=== PATIENT | male | born 1945 | race Caucasian/White ===

== ENCOUNTER 2020-09-17 02:26 | Emergency (ER) | payer MEDICARE, BC ==
[~2020-09-17] VITALS: Ht 177.8 cm; Wt 84.1 kg
[~2020-09-17 02:26] MED LIST: NO HOME MEDICATIONS
[2020-09-17 02:39] VITALS: TEMP 98.7
[2020-09-17] MEDS ORDERED: VELCADE3.5 MG IV (02:55)
[2020-09-17] MEDS ORDERED: XGEVA120 MG/1.7 SQ (02:56)
[2020-09-17] MEDS ORDERED: CRESTOR5 MG PO (02:59)
[2020-09-17] MEDS ORDERED: PRILOSEC 20MG20 MG PO (02:59)
[2020-09-17 03:09] LABS: COLLECTION METHOD CLEAN CATCH
[2020-09-17 03:19] LABS: MUCOUS Present /lpf; PH 7 (5-8); SQUAMOUS EPITHELIAL None Seen /hpf; URINE APPEARANCE Clear; URINE BACTERIA None Seen /hpf; URINE BILIRUBIN Negative (NEGATIVE); URINE BLOOD Negative (NEGATIVE); URINE COLOR Yellow; URINE GLUCOSE Negative (NEGATIVE); URINE KETONE Negative (NEGATIVE); URINE LEUKOCYTE ESTERASE Negative (NEGATIVE); URINE NITRATE Negative (NEGATIVE); URINE PROTEIN(semi-quant) Negative (NEGATIVE); URINE RBC 0-2 /hpf; URINE UROBILINOGEN Negative (NEGATIVE)
[2020-09-17] MEDS ORDERED: NORCO 325 MG-51 TAB PO (03:47)
[2020-09-17 03:55] VITALS: BP 129/70; PULSE 54
== END 2020-09-17 03:55 | disposition home or self-care (01) ==
LOC: COL.ER 02:26
PROVIDERS: Emergency Medicine
DX: M25.551 Pain in right hip (principal); M25.552 Pain in left hip; Z85.79 Personal history of other malignant neoplasms of lymphoid, hematopoietic and related tissues; Z88.0 Allergy status to penicillin
CPT/HCPCS: J1885

== ENCOUNTER 2020-09-26 20:56 | Emergency (ER) | payer MEDICARE, BC ==
[~2020-09-26] VITALS: Ht 177.8 cm; Wt 84.1 kg
[~2020-09-26 20:56] MED LIST changes: +CRESTOR5 MG PO; +NORCO 325 MG-51 TAB PO; +PRILOSEC 20MG20 MG PO; +VELCADE3.5 MG IV; +XGEVA120 MG/1.7 SQ
[2020-09-26 21:10] VITALS: TEMP 99.7
[2020-09-26] MEDS ORDERED: NORCO 325 MG-101 TAB PO (21:24)
[2020-09-26] MEDS ORDERED: DECADRON 4MG TAB4 MG PO (21:26)
[2020-09-26 21:52] LABS: BASO % 0.4 % (0.0-2.0); EOS # 0.2 (0.0-0.7); EOS % 1.5 % (0-4.0); GRAN # 6.9 (1.4-6.5); GRAN % 67.2 % (42.2-75.2); LYMPH # 2.2 (1.2-3.4); LYMPH % 21.1 % (20.0-51.0); MEAN CELL VOLUME 92 fl (80.0-100.0); MEAN CORPUSCULAR HEMOGLOBIN 30 pg (27.0-31.0); MEAN CORPUSCULAR HGB CONC 33 g/dl (33.0-37.0); MEAN PLATELET VOLUME 9.7 fl (7.4-10.4); MONO # 0.9 (0.1-0.6); MONO % 9.2 % (1.7-9.3); PLATELET COUNT 246 K/mm3 (130-400); RED BLOOD COUNT 3.64 M/mm3 (4.20-5.60); REDCELL DISTRIBUTION WIDTH-CV 16.6 % (11.5-14.5)
[2020-09-26 21:53] LABS: HEMATOCRIT 33.3 % (42.0-52.0)
[2020-09-26 22:01] LABS: ALBUMIN 3.8 gm/dL (3.5-5.0); BILIRUBIN,TOTAL 0.4 mg/dL (0.0-1.0); CREATININE, serum 1.01 (0.66-1.25); POTASSIUM 4.3 mmol/L (3.4-5.0); TOTAL PROTEIN 7.5 gm/dL (6.4-8.2)
[2020-09-26] MEDS ORDERED: DILAUDID 2MG TAB2 MG PO (22:41)
[2020-09-26 23:38] VITALS: BP 142/77; PULSE 64
[2020-09-30] MEDS ORDERED: ZOVIRAX400 MG PO (03:17)
== END 2020-09-26 23:38 | disposition home or self-care (01) ==
LOC: COL.ER 20:56
PROVIDERS: Nurse Practitioner Primary Care
DX: G89.3 Neoplasm related pain (acute) (chronic) (principal); C90.00 Multiple myeloma not having achieved remission; Z85.46 Personal history of malignant neoplasm of prostate; Z88.0 Allergy status to penicillin
CPT/HCPCS: J1170; J1885; J2270

== ENCOUNTER 2020-09-29 02:16 | Emergency (ER) | payer MEDICARE, BC ==
[~2020-09-29] VITALS: Ht 177.8 cm; Wt 84.1 kg
[~2020-09-29 02:16] MED LIST changes: +DECADRON 4MG TAB4 MG PO; +DILAUDID 2MG TAB2 MG PO; +NORCO 325 MG-101 TAB PO
[2020-09-29 02:24] VITALS: TEMP 97.8
[2020-09-29 04:15] VITALS: BP 157/90; PULSE 69
[2020-09-30] MEDS ORDERED: ZOVIRAX400 MG PO (03:17)
== END 2020-09-29 04:15 | disposition home or self-care (01) ==
LOC: COL.ER 02:16
DX: S70.01XA Contusion of right hip, initial encounter (principal); G89.3 Neoplasm related pain (acute) (chronic); M79.651 Pain in right thigh; C90.00 Multiple myeloma not having achieved remission; Z85.46 Personal history of malignant neoplasm of prostate; Z88.0 Allergy status to penicillin; W10.8XXA Fall (on) (from) other stairs and steps, initial encounter; Y93.01 Activity, walking, marching and hiking; Y92.009 Unspecified place in unspecified non-institutional (private) residence as the place of occurrence of the external cause
CPT/HCPCS: J1170; J1885; J2060

== ENCOUNTER 2020-09-29 18:47 | Emergency (ER) | payer MEDICARE, BC ==
[~2020-09-29] VITALS: Ht 177.8 cm; Wt 84.1 kg
[2020-09-29 18:52] VITALS: TEMP 98.1
[2020-09-29 20:15] VITALS: BP 140/73; PULSE 73
[2020-09-30] MEDS ORDERED: ZOVIRAX400 MG PO (03:17)
== END 2020-09-29 20:15 | disposition home or self-care (01) ==
LOC: COL.ER 18:47
DX: G89.3 Neoplasm related pain (acute) (chronic) (principal); Z88.0 Allergy status to penicillin
CPT/HCPCS: J0595

== ENCOUNTER 2020-10-08 13:58 | Inpatient (IN) | payer MEDICARE, BC ==
[~2020-10-08] VITALS: Ht 177.8 cm; Wt 83.9 kg
[~2020-10-08 13:58] MED LIST changes: +CYMBALTA 30MG30 MG PO; +DULCOLAX TAB5 MG PO; +FENTANYL 25 MCG TD; +KLONOPIN 0.5MG0.5 MG PO; +LIORESAL 1010 MG/TAB PO; +LYRICA 100MG C100 M1 PO; +MIRALAX PA17 GM/Dose PO; +ULTRAM 50MG TAB50 MG PO; +ZOVIRAX400 MG PO
[2020-10-08 18:00] VITALS: BP 121/58; PULSE 85; TEMP 98.9
--- NOTE | 2020-10-08 19:54 | NUR ---
PT WAS TRANSPORTED FROM MEDICAL UNIT VIA WC BY MEDICAL NURSE TO ROOM 333 AROUND 1700. PT WAS ORIENTED TO UNIT AND MED REC WAS COMPLETED. PT DENIED PAIN AT THIS TIME. PT ASSISTED TO RESTROOM BY VIDEO GAME SCRIPT WRITER THIS EVENING AND HAD DRIED BM AND URINE TO GROIN AREA. PT'S BED NEEDED CHANGED OUT IN 333. CONTROLS WOULD NOT STOP MOVING PT UP OR DOWN.
--- NOTE | 2020-10-08 22:41 | NUR ---
PT NEWLY ADMIT TO UNIT. PM ASSESSMENT DONE, PT MED GIVEN FOR DISCOMFORT RT LOWER LEG AND FEET. DOES HAVE FENTNYL PATCH TO LOWER LEG AND LOWER BACK, WILL BE CHANGED TOMORROW. RATES PAIN 11/17. 1ASST W GAIT BELT. PM MEDS GIVEN PER ORDER. NEEDS MET. WOULD LIKE TO HAVE TRAMDOL WHEN HE CAN HAVE IT NEXT AT 02 AM, EXPLAINS IF NOT STAY ON TOP OF IT, IT GETS OUT OF CONTROL . NEEDS MET AT THIS TIME.
[2020-10-09 03:44] VITALS: BP 120/61; PULSE 69; TEMP 97.6
--- NOTE | 2020-10-09 06:06 | NUR ---
PT RESTED THROUGH OUT NIGHT, STATES SLEPT WELL. PAIN CONTROLLED. NEEDS MET.
--- NOTE | 2020-10-09 09:54 | NUR ---
Patient resting in recliner following his first session of therapy. Patient was given prn Tramadol this morning prior to therapy with patient rating pain 5/10 to right upper thigh. He has a stage II open ulcer to his left buttocks that is 0.3 cm round and Stage II open ulcer to his right buttocks that is 1 cm round. Applied aqucel AG to both ulcers and covered with mepilex. Will continue to monitor.
--- NOTE | 2020-10-09 15:29 | NUR ---
Paper Wood Cutter met with patient to complete intake as patient is new to [facility]. Patient lives in [place] with his , Meche (home#[phone], cell#[phone]) and sees Dr. Wallis for primary care. Patient obtains medications from [facility] with no difficulties. Patient uses a walker at home and no other DME. Patient has DPOA-HC in EMR which designates his , Meche. SW will continue to follow for discharge needs.
[2020-10-09 18:03] VITALS: BP 124/63; PULSE 64; TEMP 98.4
--- NOTE | 2020-10-09 19:30 | NUR ---
RECEIVED CHANGE OF SHIFT REPORT FROM DAY SHIFT NURSE.
--- NOTE | 2020-10-09 20:19 | NUR ---
Patient attended all therapies this shift. Has been receiving pain meds Q 6 Hours for right thigh pain. Patient was seen by Dr. Chen this morning. See new orders. Patient's stopped by to visit today. Patient currently resting in bed, call light in reach and bed alarm is set. Reported off to night nurse.
--- NOTE | 2020-10-09 22:15 | NUR ---
PATIENT CALLING OUT STATING HIS PAIN IS UNBEARABLE, OBSERVED DILAUDID IS TOO EARLY TO GIVE AT THIS TIME, PATIENT INFORMED WITH PATIENT VOICING CONCERN. INFORMED ONCALL HOSPITALIST PROVIDER, OK FOR DILAUDID TO BE GIVEN AT THIS TIME AND CONTINUE TO FOLLOW PREVIOUSLY ORDER EVERY 6 HOURS FOR DILUADID DOSING.
[2020-10-10 05:27] VITALS: BP 152/89; PULSE 66; TEMP 98.2
--- NOTE | 2020-10-10 07:17 | NUR ---
CHANGE OF SHIFT REPORT GIVEN TO DAY SHIFT NURSEMIGUEL.
--- NOTE | 2020-10-10 08:21 | NUR ---
patient up to the bathroom & voided. Report increased pain. Am medication given & Prns per request. He is going to attempt to eat breakfast, but report pain is too bad.
--- NOTE | 2020-10-10 09:53 | NUR ---
PT UP TO RESTROOM FREQUENTLY, PAIN UNCONTROLLED OVER NIGHT DID NOT SLEEP MUCH AT ALL. STATES HIS PAIN IS UNBEARABLE. WILL DISCUSS WITH DRJeff HAS RECEIEVED PRN TRAMADOL AND CLONAPIN THIS AM.
--- NOTE | 2020-10-10 16:22 | NUR ---
Shredder Operator attempted to follow up with patient, however he was asleep. BRITTANY met with patient's , Meche and provided copy of team conference notes. BRITTANY advised tentative discharge date is , 10/18/20 and recommendation right now is for outpatient PT/OT. Meche confirmed that patient has a walker at home that his daughter provided. BRITTANY scheduled family meeting for Thursday at 1330. BRITTANY provided date/time to Dominique IPR Director.
[2020-10-10 17:45] VITALS: BP 112/56; PULSE 71; TEMP 97.9
--- NOTE | 2020-10-10 19:09 | NUR ---
RECEIVED CHANGE OF SHIFT REPORT FROM DAY SHIFT NURSE.
--- NOTE | 2020-10-10 20:00 | NUR ---
GAIT AFFECTED BY PAIN TO RIGHT LEG THAT IS CONSTANT WHEN PAIN MEDS HAVE WORN OFF. SEE eMAR FOR MEDS GIVEN. DENIES CHEST PAIN/SOA/NAUSEA. DENIES NUMBNESS/TINGLING TO EXTREMITIES AT THIS TIME. BED ALARM ON WHILE IN BED.
[2020-10-11 04:41] VITALS: BP 146/77; PULSE 64; TEMP 97.8
[2020-10-11 07:15] VITALS: BP 125/81; PULSE 85; TEMP 98.2
--- NOTE | 2020-10-11 07:15 | NUR ---
Patient had a non injury fall this morning at approx. 7:15 am. See fall report.
--- NOTE | 2020-10-11 07:16 | NUR ---
CHANGE OF SHIFT REPORT GIVEN TO DAY SHIFT NURSE, ASHLEIGH ESCALANTE.
[2020-10-11 07:25] VITALS: BP 125/81; PULSE 85; TEMP 98.2
--- NOTE | 2020-10-11 10:41 | NUR ---
Patient currently at Group Therapy at this time. He has attended all morning therapies and pain continues on his regimen of pain meds prn. Patient in pleasent mood at this time.
[2020-10-11 13:17] VITALS: BP 91/52; PULSE 73; TEMP 98
--- NOTE | 2020-10-11 14:01 | NUR ---
Admission QIM scores were reviewed by the team. Code of 3 chosen for toileting transfers was determined by team discussion to be the most usual performance for this patient during the assessment period. Code of 3 chosen for lower body dressing was determined by team discussion to be the most usual performance for this patient during the assessment period. Code of 3 chosen for sit to lying was determined by team discussion to be the most usual performance for this patient during the assessment period. Code of 3 for chair/bed to chair transfers was determined by team discussion to be the most usual performance for this patient during the assessment period. Code of 4 chosen for lying to sitting on side of bed was determined by team discussion to be the most usual performance for this patient during the assessment period. Code of 3 chosen for walk 10 feet was determined by team discussion to be the most usual performance for this patient during the assessment period.--Dominique Mitchell, PD
[2020-10-11 15:01] VITALS: BP 102/56; PULSE 75
--- NOTE | 2020-10-11 15:23 | NUR ---
Patient has a stage II to right inner buttocks and left inner buttocks. Both are continuing to decrease in size. Patient purchased a chair cushion for patient to help with ulcers. Area was cleansed, patted dry, applied aquacel AG and secured with mepilex. Patient has been very tired this shift. He has not received any pain meds since 10 am this morning due to SBP being lower and him reporting no pain along with sleepiness. Will continue to monitor.
[2020-10-11 15:50] VITALS: TEMP 98.3
--- NOTE | 2020-10-11 19:55 | NUR ---
Patient resting in bed at this time, call light in reach and bed alarm set. Patient's stopped by this afternoon and reviewed meds with this nurse. Patient attended all therapies today, but was very tired in between. OT decided to try to give him a shower tomorrow due to his unsteadiness this shift. Patient denies any questions at this time. Reported off to night nurse.
--- NOTE | 2020-10-11 20:30 | NUR ---
PT SITTING UP IN RECLINER. PLEASANT A&O X4. PT ALITTLE BISHOP PAIUTE. NO H/A'S BILAT. PT EXPRESSES CONCERN ABOUT IMPORTANCE OF [id number] PAIN CONTROL. RELATES HAS SEVER PAIN AT TIME TO RLE DOWN TO FOOT AND ALITTLE ON LT FOOT. PAIN MANAGEMENT PLAN OF CARE REVIEWED ANND PT AGREEABLE. PT REUSE TO CHANGE CLOTHING TONIGHT. DIRECTOR MACHINE ASSIST PT TO BED AND PT WAS ABLE TO LIFT SELF INTO BED. CALL LIGHT IN REACH. BED ALARM SET.
--- NOTE | 2020-10-11 20:35 | NUR ---
FALL PREVENTION PLAN REVIEWED. CALL FOR ASSIST AND WAIT FOR STAFF TO ASSIST.
--- NOTE | 2020-10-11 21:21 | NUR ---
Following the fall that occured with patient this morning staff was educated on needing to put the bed alarm on at all times. Staff was also educated on the need to make rounds when doing report.
[2020-10-12 05:31] VITALS: BP 129/74; PULSE 67; TEMP 98.3
--- NOTE | 2020-10-12 06:06 | NUR ---
PT REQUESTING MEDS FOR PAIN AND ANXIETY. SEE MAR FOR TYLENOL AND XANAX GIVEN. NEW TUBING WITH JEVITY THIS AM. LAB HERE FOR BLOOD DRAW PER PICC. PT RELATED SLEPT FAIRLY WELL LAST NIGHT. TAKING H20 AND ICE CHIPS. NO CHOKING EPISODES. TRACH CLEAR. NO OTHER NEEDS NOTED. CALL LIGHT IN REACH. BED ALARM SET.
--- NOTE | 2020-10-12 06:09 | NUR ---
PT UP TO BR WITH MACHINIST HELPER MARINE. VOIDED. RETURNED TO BED. SEE MAR FOR DILAUDID GIVEN EARLIER CONTINUED PAIN. BACK TO BED. CALL LIGHTIN REACH. BED ALARM SET.
[2020-10-12 15:05] VITALS: BP 109/64; PULSE 118; TEMP 98.4
--- NOTE | 2020-10-12 15:11 | NUR ---
Power Plant Installer met with patient and patient's to check in before the weekend. Patient states today has been a better day. Family meeting will be on Thursday afternoon.
--- NOTE | 2020-10-12 19:20 | NUR ---
PATIENT HAS UNEVENTFUL DAY. PATIENT GIVEN PRN PAIN MEDICATION NEEDED. PATIENT COCCYX DRESSING CHANGED. REPORT GIVEN TO BORIS MURRY.
--- NOTE | 2020-10-12 19:29 | NUR ---
END OF SHIFT REPORT RECEIVED FROM DAY SHIFT NURSE. PT UP IN CHAIR. DENIES ANY NEEDS AT THIS TIME. HAS CALL LIGHT IN REACH.
--- NOTE | 2020-10-12 21:00 | NUR ---
SHIFT ASSESSMENT COMPLETE. PT RESTING IN BED. HS MEDS GIVEN. LOVENOX 40MG GIVEN IN ABD. STATES HE IS FEELING BETTER TONIGHT. FENTANYL PATCH INTACT TO UPPER LEFT BACK. DRESSINGS TO COCCYX CLEAN, DRY AND INTACT. ASSIST TO BR WITH USE OF WALKER AND GAITBELT. SM, SOFT BROWN BM. RETURNS TO BED. BED ALARM ON. CALL LIGHT IN REACH.
[2020-10-13 05:01] VITALS: BP 135/69; PULSE 59; TEMP 98.6
--- NOTE | 2020-10-13 07:46 | NUR ---
PT UNABLE TO GET COMFORTABLE AT HS. TOOK TRAMADOL 100MG X2, TYLENOL 650MG AND DILAUDID GIVEN FOR PAIN RATED 2-4/10. AMBULATES TO BR WITH 1:1 ASSIST AND USE OF WALKER. SLOW, STEADY GAIT. UP IN CHAIR FOR BREAKFAST. CALL LIGHT IN REACH.
--- NOTE | 2020-10-13 10:08 | NUR ---
PT ASSISTED TO BATHROOM AT BEDSIDE SHIFT REPORT. PT DENIED PAIN AT THIS TIME. DRSG WAS CHANGED TO COCCYX 2 S2 PRESSURE INJURIES WHICH ARE HEALING, ZINC AND ALLEVYN PLACED.
--- NOTE | 2020-10-13 17:41 | NUR ---
DISCUSSED WITH PT METHODS FOR COPING WITH ANXIETY, ALSO DISCUSSED TAKING NARCOTICS WHEN PAIN MANAGEABLE AND HOW THIS CAN LEAD TO DEPENDENCY AND TOLERANCE. THIS CONVERSATION MADE THE PT VERY ANXIOUS. HE AGREED TO WAIT AND 45-60 MINUTES LATER WHEN ROUNDED HE WAS VISIBLY ANXIOUS IN RECLINER. THOUGH HE WAS RATING PAIN AT A 2. PT GIVEN PRN TRAMADOL ONCE THIS AM.
[2020-10-13 18:00] VITALS: BP 110/62; PULSE 99; TEMP 98.6
--- NOTE | 2020-10-13 20:00 | NUR ---
REVIEWED WITH PT PAIN LEVEL EDUCATION ON SCORING PTS PAIN. DEVELOPED PAIN/ANXIETY MANAGEMENT PLAN WITH PT. PT AGREED WITH PLAN. PT HAS ANXIOUS AFFECT AND NERVOUS ABOUT HAVING ANY PAIN TO THE DEGREE LIKE AT TIME OF ADMISSION. PAIN LEVEL AT THIS TIME IS 2/10.
--- NOTE | 2020-10-13 21:51 | NUR ---
PT REPORTS RT LEG PAIN LEVEL 4/10. SEE MAR FOR TYLENOL GIVEN.
--- NOTE | 2020-10-13 22:54 | NUR ---
PT REPORTED RT LEG AND SOME LT LEG PAIN IS AT LEVEL 6/10. PT CALM, RESTING IN RELAXED MANNER. RESP EVEN AND UNLABORED. REVIEW PAIN LEVEL AGAIN WITH PT. PT RELATES HE IS AT LEVEL 6/10. SEE MAR FOR DILAUDID GIVEN.
--- NOTE | 2020-10-14 00:08 | NUR ---
PT C/O LEVEL 10/10 PAIN LEVEL TO RT LEG. BURNING PAIN. ASSISTED TO BR WITH WALKER. WEAK GAIT. VOIDED. PT WEEPING AND MOANING WITH AMB. RETURNED NOW TO RECLINER. PLACED HEATING PAD UNDER RT LEG. TOO SOON FOR MORE PAIN MED. PROVIDED EMOTIONAL SUPPORT. CALL LIGHT IN REACH. CHAIR ALARM SET.
--- NOTE | 2020-10-14 00:18 | NUR ---
PT REPORTS SITTING UP AND KPAD IS HELPING SOME. CALL LIGHT IN REACH. PT REPORTED HE HAD BEEN ON DEXAMETHASONE BEFORE AND THAT HELPED. BUT HE IS UNABLE TO TAKE PREDNISONE. WILL PASS THIS ON TO
--- NOTE | 2020-10-14 01:15 | NUR ---
PT ASSISTED BACK TO BED. CALL SHAE IN REACH. BED ALARM SET.
--- NOTE | 2020-10-14 02:25 | NUR ---
PT SLEEPING NO RESP DISTRESS.
[2020-10-14 05:03] VITALS: BP 127/70; PULSE 63; TEMP 98
[2020-10-14 16:16] VITALS: BP 138/62; PULSE 75; TEMP 98.2
--- NOTE | 2020-10-14 17:45 | NUR ---
PT DID NOT C/O ANYTHING OTHER THAN MILD PAIN TODAY. NO PRN MEDICATIONS GIVEN THIS SHIFT. BOWEL MEDS HELD TODAY. PT REFUSED A WALK, AT ONE POINT NEEDED A 2 ASSIST UP FROM BED. MOST OTHER TRANSFERS REQUIRED A SBA-MIN ASSIST. PT RESTED WELL TODAY, CATHING UP ON SLEEP LOST OVER NIGHTS.
--- NOTE | 2020-10-14 21:00 | NUR ---
PT CALLED 2044 TO REMIND NURSE OF HIS LYRICA THAT IS DUE AT 2099. PT ANXIOUS TONIGHT. PT LEVEL 2-10/17 AT THIS TIME. SEE MAR FOR CLOAZEPAM GIVEN. PT RELATES PAIN IS IN HIS FEET TONIGHT. CALL LIGHT IN REACH. BED ALARM SET.
--- NOTE | 2020-10-14 22:12 | NUR ---
PT CALLED . PAIN IN LEGS "FIRING UP". LEVEL 6/10. DILAUDID GIVEN. VERY OBCESSIVE ABOUT MEDS AND TIMES. WANTING TO GO TO BR AGAIN. NO S/S OF UTI. USING CALL LIGHT FREQUENTLY. ENSURED ALL NEEDS MET. CALL LIGTH IN REACH. BED ALARM SET.
--- NOTE | 2020-10-15 00:28 | NUR ---
PT CALLING FOR BR/ VOID APPROX Q1-2 HRS. DIFFICULTY GETTING STREAM GOING BBUT VOIDS MODERATE AMTS. WILL BLADDER POST VOID NEXT TIME.
--- NOTE | 2020-10-15 00:40 | NUR ---
BLADDER SCANNED POST VOID WITH 760CC RESIDUAL. RAZ LUNA NOTIFIED. NEW ORDER.
--- NOTE | 2020-10-15 01:06 | NUR ---
PLACE #[id number] CAUDE WITH IMMEDIATE RETURN OF DILUTE CLEASR YELLOW URINE. SPECIMEN SENT TO LAB. ATTEMPTED 1ST TIME WITH 16FR AND WAS UNABLE TO BYPASS PROSTATE. PT NOW RESTING REASTING AT THIS TIME. CALL LIGHT IN REACH. BED ALARM SET.
[2020-10-15 01:07] LABS: COLLECTION METHOD IN
[2020-10-15 01:14] LABS: MUCOUS Present /lpf; PH 8 (5-8); SQUAMOUS EPITHELIAL None Seen /hpf; URINE APPEARANCE Clear; URINE BACTERIA Rare /hpf; URINE BILIRUBIN Negative (NEGATIVE); URINE BLOOD Negative (NEGATIVE); URINE COLOR Yellow; URINE GLUCOSE Negative (NEGATIVE); URINE KETONE Negative (NEGATIVE); URINE LEUKOCYTE ESTERASE Negative (NEGATIVE); URINE NITRATE Negative (NEGATIVE); URINE PROTEIN(semi-quant) Negative (NEGATIVE); URINE UROBILINOGEN Negative (NEGATIVE)
--- NOTE | 2020-10-15 01:38 | NUR ---
PT HAD 750CC POST VOID RESIDUAL PER WHALEN.
--- NOTE | 2020-10-15 04:06 | NUR ---
PT CALLED FOR DILAUDID. VERY ANXIOUS. SEE MAR FOR CLONAZEPAM/DILAUDID. WHALEN DRAINING FREELY. PT HAS TO BE REMINDED TO KEEP HIMSELF COVERED.
[2020-10-15 05:17] VITALS: BP 145/62; PULSE 67; TEMP 97.4
--- NOTE | 2020-10-15 05:35 | NUR ---
PT SLEEPS BUT RESTLESS. REPOSITIONED UP IN BED. WHALEN DRAINED >1000CC THIS SHIFT. REVIEWED HOW STAFF WOULD ASSIST PT WITH CLOTHING AND WHALEN SO THERAPY WONT BE A HENDRENCE. PT AGREEED WITH PLAN.
--- NOTE | 2020-10-15 06:34 | NUR ---
2:1 ASSIST TO RECLINER. PT WEEPING. SEE MAR FOR TRAMADOL GIVEN. PT REFUSES THERAPY TODAY.
--- NOTE | 2020-10-15 10:52 | NUR ---
Patient was very tearful this AM and reported that he had not gotten much sleep last night. This nurse sat down with patient for a good half hour and let him talk and assisted with helping him relax through breathing. Patient was able to work with therapy this morning and is now in a pleasent mood. Dr. Chen assessed patient today, see new orders. Will continue to monitor.
[2020-10-15 12:48] VITALS: BP 147/69
--- NOTE | 2020-10-15 15:33 | NUR ---
Interlocking Tower Operator participated in patient/family conference which included patient's , Meche at bedside and his daughter by speakerphone. LADONNA Fox Director opened the meeting by explaining it's purpose then PT/OT reviewed patient's progress and expressed some concern as patient was having some difficulty today. The team discussed that patient may be having an off day and hopefully will improve over the next couple of days. It was discussed that patient did not get much sleep last night. BRITTANY reviewed tentative discharge date of , 10/18/20 and recommendation of either outpatient PT/OT or Home Health services. Patient will also need a front wheeled walker ordered prior to discharge. Patient's did express some concern with patient returning home based on today's performance but advised they have started planning for patient to return home and making arrangements. Following the family meeting, BRITTANY discussed DME needs with patient's , Meche who advised she would like patient's walker to be ordered from [facility]. Meche states that if [facility] cannot run insurance for the walker, they would order from [facility]. BRITTANY will continue to follow.
[2020-10-15 16:20] VITALS: BP 119/61; PULSE 69; TEMP 98.2
--- NOTE | 2020-10-15 19:48 | NUR ---
Patient sleeping in bed at this time, call light in reach and bed alarm set. Stage II pressure ulcers to bottom are healed. Patient had new Fentanyl patch applied this morning to right upper back. 22 G IV catheter was placed to left forearm with no difficulty. Dr. Chen had requested that this be placed for IV Dillaudid at HS for breakthrough pain. If pain is not controlled the nurse will need to call hospitalist for further orders. This was communicated to the production shift supervisor nurse.
--- NOTE | 2020-10-15 19:51 | NUR ---
RECEIVED CHANGE OF SHIFT REPORT FROM DAY SHIFT NURSE. BED ALARM ON.
--- NOTE | 2020-10-15 20:00 | NUR ---
DISCUSSED WITH PATIENT, PAIN MEDS AVAILABLE, SEE eMAR FOR MEDS GIVEN. WHALEN INTACT, DRAINING WITH NO PROBLEMS. BED ALARM ON WHEN IN BED. DENIES CHEST PAIN/SOA/NAUSEA AT THIS TIME. DENIES NUMBNESS/TINGLING TO EXTREMITIES.
[2020-10-16 04:55] VITALS: BP 132/81; PULSE 63; TEMP 98.2
--- NOTE | 2020-10-16 07:26 | NUR ---
CHANGE OF SHIFT REPORT GIVEN TO DAY SHIFT NURSE, MIGUEL ESCALANTE.
--- NOTE | 2020-10-16 08:28 | NUR ---
PT SLEEPING IN BED THIS AM, REPORTS 4/10 PAIN LEVEL. PRN TRAMADOL GIVEN PRIOR TO THERAPY THIS AM. REPORTS SLEEPING BETTER LAST NIGHT AND ABLE TO PERFORM TASKS WELL THIS AM.
--- NOTE | 2020-10-16 10:13 | NUR ---
Initial visit; Patient thanked Application Development Project Manager for looking in on him, offering prayer and keeping him in Application Development Project Manager's prayers. Application Development Project Manager will follow up.
--- NOTE | 2020-10-16 15:09 | NUR ---
Employee Development Director spoke with Jenniffer at [facility] who advised they can bill insurance for FWW. SW faxed order for FWW and referral to Jenniffer. BRITTANY will continue to follow.
[2020-10-16 17:10] VITALS: BP 118/62; PULSE 80; TEMP 98.2
--- NOTE | 2020-10-16 19:10 | NUR ---
PT VERY DROWSY AFTER THERAPY THIS AFTERNOON AROUSABLE AFTER 1-2 MINUTES AND VERY LETHARGIC WHEN AROUSED. PT DOES NOT REMEMBER CONVERSATIONS HAD DURING THIS TIME. RESPIRATIONS WNL AND PUPILS 3MM, NO NARCOTICS GIVEN SINCE 0830. FENDER REPAIRER AWAWRE TO MONITOR MORE FREQUENTLY DURING NIGHTS.
--- NOTE | 2020-10-16 19:16 | NUR ---
RECEIVED CHANGE OF SHIFT REPORT FROM DAY SHIFT NURSE.
--- NOTE | 2020-10-16 20:00 | NUR ---
OBSERVED GAIT SLIGHT UNSTEADY WHEN PATIENT INITIALLY WALKS AFTER SIT TO STAND REPOSITIONING. OBSERVED SOME WEAKNESS TO BOTH LEGS WITH MOVMENT WITH WALKING, USES WALKER. DENIES CHEST PAIN/SOA/NAUSEA AT THIS TIME. REQUESTING CLONOPIN, SEE eMAR FOR MEDS GIVEN. WHALEN CATH IN PLACE, DRAINING WITH NO PROBLEMS. EXIT ALARMS TO CHAIR (WHEN UP IN CHAIR) OR TO BED (WHEN IN BED) ARE USED ACCORDINGLY.
--- NOTE | 2020-10-16 22:30 | NUR ---
PATIENT RESTING WITH EYES CLOSED, OBSERVED BREATHING EVEN AND NONLABORED. BED ALARM ON.
--- NOTE | 2020-10-16 23:47 | NUR ---
REQUESTED AND GIVEN PAIN MEDS, SEE MAR FOR MED GIVEN.
--- NOTE | 2020-10-17 00:08 | NUR ---
REQUESTED ADDITIONAL PAIN MEDS ALLOWED PER DR ORDER, SEE eMAR FOR MED GIVEN. REPORT PAIN UP FROM 01/17 TO 02/16.
[2020-10-17 05:32] VITALS: BP 160/67; PULSE 69; TEMP 98.5
--- NOTE | 2020-10-17 05:42 | NUR ---
PATIENT CALLED OUT FOR HELP FROM STAFF, UPON ENTERING ROOM, PATIENT FOUND SITTING AT FOOT OF BED, BED RAIL UP, DANGLING, PATIENT REPORTED FOUND HIMSELF IN THAT POSITION AFTER WAKING FROM HAVING "A VIVID DREAM....OF TRYING TO GET YOU TO HELP ME". PATIENT THEN REPORTS HE IS STARTING TO HAVE PAIN AND WANTING PAIN MEDICATION, SEE eMAR FOR MEDS GIVEN. USING WHEELED WALKER AND GAIT BELT PATIENT STOOD AT SIDE OF BED, SIDE STEPPING UP TOWARDS HEAD OF BED BEFORE SITTING DOWN AND REPOSITIONING SELF IN A SUPINE POSITION IN BED. PATIENT STATES HE WILL CALL OUT WHEN HIS NEXT DOSE OF DILAUDID GRETA BE AVAILABLE, AT 0600. NO OTHER NEEDS REPORTED. BED ALARM ON WITH PATIENT BACK IN BED.
--- NOTE | 2020-10-17 07:20 | NUR ---
CHANGE OF SHIFT REPORT GIVEN TO DAY SHIFT NURSE, VITALY ESCALANTE.
--- NOTE | 2020-10-17 15:49 | NUR ---
Cathode Builder met with patient and patient's to review and provide copy of team conference notes. Discharge date has been moved to 10/20/20. Recommendation for outpatient therapy has been changed to Home Health PT/OT. BRITTANY provided Medicare.gov list of agencies that serve [place] and will follow up on patient choice. Patient's advised that her daughter already picked up patient's front wheeled walker from [facility]. BRITTANY will continue to follow.
[2020-10-17 16:59] VITALS: BP 114/63; PULSE 72; TEMP 98.2
--- NOTE | 2020-10-17 18:19 | NUR ---
Patient did well today. No bowel movement. His was at bedside most the afternoon. Pain control ok today, did not require dilauded since this am. No complaints of nausea. He was started on flomax with plan of mendez being discontinued in AM. He is eating and drinking ok. He did not have a bowel movement this shift. No other changes at this time. Call light within reach.
--- NOTE | 2020-10-17 20:00 | NUR ---
PHONE ALARM SOUNDING. PT SLEEPING THROUGH IT. SNORING RESPIRATIONS. ADJUSTED WHALEN TUBING. PT DID NOT WAKE. CALL LIGHT IN REACH. BED ALARM OFF.
--- NOTE | 2020-10-17 21:15 | NUR ---
WOKE PT UP FOR HS MEDICATIONS. PT MOANIONG RELATED BILAT LEGS HURT. LEVEL 01/17. SEE MAR FOR TRAMADOL/ CLONAZEPAM GIVEN PER REQUEST. PT VERY DROWSY. NO RESP DISTRESS. ENC TCDB WITH WAKES. PT PASSISNG FLATUS. NO BM. GAVE SENOKOT. WHALEN DRAINING WELL CLEAR DILUTE URINE. PT WRITING DOWN MEDICATIONS TAKEN THIS EVENING. SCD'S ON. CALL LIGHT IN REACH. BED ALARM SET.
--- NOTE | 2020-10-18 02:40 | NUR ---
PT AWAKE. REQUEST DILAUDID BUT WANTED TO KNOW HOW SOON HE COULD GET TRAMADOL SINCE ITS DUE AT 0300. REVIEWED PAIN LEVELS, MEDICATIONS & POSSIBLE SE OF RESP DEPRESSION WITH NARCOTICS. PAIN LEVEL NOW TO RT THIGH AND LEG LEVEL 6/10. SEE MAR FOR DILAUDID GIVEN. CALL LIGHT IN REACH. BED ALARM SET.
--- NOTE | 2020-10-18 03:45 | NUR ---
PT REQUESTING TRAMADOL NOW. JUST RECEIVED DILAUDID 234. PAIN LEVEL 6/10 RLE. PT SLURRING WORDS. EYES HEAVY. PT RESTING IN A RELAXED POSITION. RESP 16. ENC PT TO WAIT UNTILL 444 AND WE WILL REASSESS NEED THEN. CALL LIGHT IN REACH. BED ALARM SET.
--- NOTE | 2020-10-18 04:43 | NUR ---
PT CALLED TO REMIND NURSE OF TIME FOR TRAMADOL. GAVE TRAMADOL. PT THEN ASKED WHEN HE CAN HAVE ANY OTHER PAIN MEDS NEXT. PT ALREADY WELL INFORMED OF TIME FRAME FOR PAIN MEDICATIONS. INFORMED PT OF PLAN TO DC KOBY AROUND 0530AM. CALL LIGHT IN REACH. BED ALARM SET.
[2020-10-18 04:59] VITALS: BP 111/62; PULSE 64; TEMP 98.3
--- NOTE | 2020-10-18 05:01 | NUR ---
PT OFFERED KAPD OR ICE PACK FOR PAIN. DECLINED.
--- NOTE | 2020-10-18 05:41 | NUR ---
PT DOZING NOW BUT WAKE TO VERBAL STIMULI. DC'Marylou WHALEN. INSTRUCTED PT TO VOID IN URINAL FOR MEASUREMENT 1ST TIME. PT VERBALIZED UNDERSTANDING.
--- NOTE | 2020-10-18 06:13 | NUR ---
PT REQUESTING MORE PAIN MEDICATION. TOO SOON.
--- NOTE | 2020-10-18 10:36 | NUR ---
Follow-up visit; Sterling thanked for continuing to look in on him and wish him well as he moves on to [facility]. continues to pray for Sterling.
[2020-10-18 16:38] VITALS: BP 120/55; PULSE 83; TEMP 98.3
--- NOTE | 2020-10-18 16:40 | NUR ---
Sheet Metal Roofer contacted [facility] and they confirmed the front wheeled walker was picked up and processed. SW followed up with patient and patient's , Meche about Home Health. Meche reports they are between [facility] and [facility]. Meche states they will make a final decision tomorrow.
--- NOTE | 2020-10-18 17:58 | NUR ---
Patient attended all therapies today. Patient's stopped by to visit patient this afternoon. They both got a chance to talk to Dr. Chen. See new orders for scheduled pain meds. Cory with PT reported that patient had a very hard work out today and to make sure that night nurse knows this and addresses pain med needs effectively. This will be communicated to night custodian. Will continue to monitor.
--- NOTE | 2020-10-18 19:49 | NUR ---
PT RESTING IN BED. END OF SHIFT REPORT RECEIVED FROM DAY SHIFT NURSE. DENIES ANY NEEDS AT PRESENT. CALL LIGHT IN REACH.
--- NOTE | 2020-10-18 20:12 | NUR ---
Call placed to Paolada patient's to update her on patient's pain level and cares. She voiced understanding.
--- NOTE | 2020-10-18 21:04 | NUR ---
Patient was given a prn suppository this evening due to not having a BM in past few days. Awaiting results.
[2020-10-18 23:21] VITALS: BP 130/70; PULSE 65; TEMP 98.3
--- NOTE | 2020-10-19 03:17 | NUR ---
Nurse has been checking patient every half hour and he has been sleeping with even and unlabored resp since 2329. At 0 pt calls and is asking for pain pill that is due. Pt states he sets his alarm to wake up for his pain med. Explained to him that his pill is not due until 329 at the earliest.
[2020-10-19 05:22] VITALS: BP 137/79; PULSE 71; TEMP 98
--- NOTE | 2020-10-19 08:01 | NUR ---
PT GIVEN MEDS ORDERED. SLEPT WELL UNTIL HIS ALARM HE HAD SET WENT OFF SO HE CAN TAKE HIS PAIN MED. CALLS FOR PAIN MED AND CAN NOT MAKE CLEAR SENTENCES. PT KEEPS LOG OF PAIN MEDS GIVEN AND TIMES. HAS SOME TROUBLE ASKING FOR THE RIGHT MED DUE TO BE GIVEN. BECOMES VERY ANXIOUS IF NOT IN ROOM WITH MED RIGHT ON TIME. EXPLAINED I MAY BE IN ONE OF MY OTHER PATIENTS ROOMS BUT WILL COME SOON I CAN. HE IS OK WITH THIS AND THEN CALLS WITHIN 5 MIN. MO O2 THIS SHIFT. AMBULATES TO BR WITH 1:1 ASSIST. CALL LIGHT IN REACH AND BED ALARM ON. WILL CONTINUE TO MONITOR.
--- NOTE | 2020-10-19 08:39 | NUR ---
PT WEAK GETTING UP TO BATHROOM THIS AM. PT IS SETTING ALARMS TO WAKE HIMSELF AT NIGHT IN ORDER TO CALL FOR PAIN MEDICINE. SLEEP HAS BEEN A BIG ISSUE, IN NOT GETTING ENOUGH.
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
[2020-10-19 17:37] VITALS: BP 115/59; PULSE 90; TEMP 98.6
--- NOTE | 2020-10-19 19:35 | NUR ---
PT RECEIEVED PRN DILAUDED THIS AM AROUND 0930, THOUGH ENCOURAGED NOT TO BECAUSE RATED PAIN A 2 WHICH IS BASELINE. PT INSISTED HE NEEDED SOMETHING AT THIS TIME. WHILE WORKING WITH OT TO TRANSFER TO SHOWER AT 1110 HIS LEGS GAVE OUT AND HE FELL TO FLOOR. THE OT FOUND THIS NURSE TO ASSESS AND HELP ASSIST PT TO SITTING ON SHOWER CHAIR. 3 PEOPLE WERE ABLE TO LIFT AND GET PT TO SHOWER CHAIR. PT WAS UNABLE TO HELP AT ALL WITH THIS TRANSFER. PT SCRAPPED HIS BACK AGAINST SHOWER SEAT WHILE FALLING AND HAS A MINOR ABRASION TO LOWER RT BACK. NO DRAINAGE, SO LEFT DAVID. PT DENIED INJURING LEGS OR ANYTHING ELSE AT THIS TIME. FELT LIKE THE DILAUDID WAS THE REASON FOR HIS WEAKNESS AND FALL. VITAL SIGNS WERE TAKEN AND WERE WNL 111/95, P:90, 98.2, R:18, 96% ON RA. CHARGE NURSE WAS NOTIFIED WELL DR. NAVAS, NO INJURIES REPORTED OTHER THEN ABRASION. PT DENIED NEEDING ANY OTHER PAIN MEDICATION THE REST OF THE SHIFT. REPORTED PAIN A MANAGEABLE 2/10.
--- NOTE | 2020-10-19 19:54 | NUR ---
END OF SHIFT REPORT RECEIVED FROM DAY SHIFT NURSE. PT BEING ASSISTED TO BED BY NURSE AIDE.
--- NOTE | 2020-10-19 23:42 | NUR ---
PT SLEEPY TONIGHT BUT STILL REQUEST HIS PAIN MEDS. DILAUDID 2MG PO GIVEN AND CLONAZEPAM GIVEN PER REQUEST. SHIFT ASSESSMENT COMPLETE. REPORTS HIS PAIN LEVEL 10/17. INT INTACT TO L FA. WRAPPED IN [place]. AMBULATES TO BR WITH ONE ASSIST. CALL LIGHT WITHIN REACH.
[2020-10-20 03:50] VITALS: BP 103/42; PULSE 76; TEMP 98.3
--- NOTE | 2020-10-20 07:32 | NUR ---
PT HAD A GOOD NIGHT. TOOK HIS HS MEDS AROUND 2044 AND WAS GIVEN HIS DILAUDID AND CLONAZEPAM. CHECKED ON EVERY 1/2 HOUR AND HE SLEPT UNTIL 033. WOKE UP AND WAS ASSISTED TO COMMODE. STATES HIS LEFT LEG FELT REALY NUMB. PASSES LOTS OF FLATUS. HAS SEVERAL QUESTIONS ABOUT WHEN HE HAD TAKEN HIS LAST PAIN MEDS. EXPLAINED TO HIM ABOUT HIS SCHEDULE OF TAKING HIS MEDS. HE AGREES TO TAKING HIS PAIN MEDS WE DISCUSSED. VERY APPRECIATIVE OF DISCUSSING HOW TO PLAN TO TAKE HIS MEDS. CALL LIGHT IN REACH. ASSIST TO CHAIR. REPORT GIVEN TO DAY SHIFT NURSE.
--- NOTE | 2020-10-20 07:43 | NUR ---
Patient resting in recliner, call light in reach and alarm set. Discussed discharge orders. Awaiting for to arrive to see patient. Will continue to monitor.
[2020-10-20] MEDS ORDERED: FLOMAX 0.40.4 MG/CAP PO (09:13)
[2020-10-20] MEDS ORDERED: TYLENOL 325MG325 MG PO (09:14)
[2020-10-20] MEDS ORDERED: ZINC OXIDE56.7 GM TOP (09:15)
[2020-10-20] MEDS ORDERED: LYRICA200 MG PO (09:15)
[2020-10-20] MEDS ORDERED: KLONOPIN 0.5MG0.5 MG PO (09:29)
[2020-10-20] MEDS ORDERED: DILAUDID 2MG TAB2 MG PO (09:29)
[2020-10-20] MEDS ORDERED: ULTRAM 50MG TAB50 MG PO (09:29)
[2020-10-20] MEDS ORDERED: FENTANYL 25 MCG TD (09:29)
--- NOTE | 2020-10-20 10:55 | NUR ---
Received orders from Dr. Chen that it was okay to change out patient's Fentanyl patch today, even though it is a day early. A one time order was put in to the EMR and patient received a replacement Fentanyl patch and it was placed on his right upper back. Patient currently resting in recliner, call light in reach and chair alarm set. His is at his side at this time.
--- NOTE | 2020-10-20 12:12 | NUR ---
Patient Health Summary, Discharge Summary, and Home Meds reviewed with patient and his Sofia. Stressed importance of follow up appointments. Called prescriptions to pharmacy of choice. Belongings gathered by HARDIK/Christa and patient is currently waiting for his daughter to arrive to drive him home.
--- NOTE | 2020-10-20 13:16 | NUR ---
Patient was transported via wheelchair by BORIS/Jayashree to patient's car. Patient was a two person transfer from wheelchair to inside his car. The seat of the car was back real far so patient required one staff member to crawl in car and pull him from the back side to slide him onto the seat and the front person held him steady so he didn't fall down. Patient was a mod assist with standing using his walker. Patient was seatbelted for ride home with his . Patient and denied any further questions.
--- NOTE | 2020-10-20 15:00 | NUR ---
Patient will discharge home today [facility] home health. BRITTANY faxed discharge orders and communicated with [facility] staff regarding discharge. [facility] will contact patient with preference for start date. BRITTANY notified nursing staff that orders were sent and [facility] was contacted. There are no new needs at this time.
--- NOTE | 2020-10-22 11:47 | NUR ---
BRITTANY verified start of home health services on 10/20/20
--- NOTE | 2020-10-22 13:28 | NUR ---
Discharge QIM scores were reviewed by the team. Code of 6 chosen for upper body dressing was determined by team discussion to be the most usual performance for this patient during the assessment period. Code of 4 chosen for lower body dressing was determined by team discussion to be the most usual performance for this patient during the assessment period. Code of 6 chosen for putting on/taking off footwear was determined by team discussion to be the most usual performance for this patient during the assessment period. Code of 4 for sit to stand was determined by team discussion to be the most usual performance for this patient during the assessment period. Code of 4 chosen for walk 10 feet was determined by team discussion to be the most usual performance for this patient during the assessment period. Code of 4 chosen for walk 50 feet w/ 2 turns was determined by team discussion to be the most usual performance for this patient during the assessment period.--Dominique Mitchell, PD
== END 2020-10-20 13:30 | disposition home health service (06) | DRG 74 ==
PROVIDERS: Student in an Organized Health Care Education/Training Program; ADMIT Internal Medicine
DX: G61.81 Chronic inflammatory demyelinating polyneuritis (principal); C90.00 Multiple myeloma not having achieved remission; M48.02 Spinal stenosis, cervical region; K21.9 Gastro-esophageal reflux disease without esophagitis; R33.9 Retention of urine, unspecified; K59.00 Constipation, unspecified; F41.9 Anxiety disorder, unspecified; R52 Pain, unspecified; E78.5 Hyperlipidemia, unspecified; Z79.891 Long term (current) use of opiate analgesic; Z85.46 Personal history of malignant neoplasm of prostate; Z91.81 History of falling; Z88.0 Allergy status to penicillin
CPT/HCPCS: 99222-AI; 99231-AI; 99232-AI; 99233-AI; 99239; A4314; J1650